=== PATIENT | male | born 1960 | race Caucasian/White ===

== ENCOUNTER 2025-05-01 00:51 | Day surgery (SDC) | payer OTHER, SELFPAY ==
[2025-04-25 08:26] VITALS: BMI 21.6
[2025-05-01 08:17] VITALS: BP 109/75; PULSE 57; RESP 18; TEMP 36.1; O2SAT 95
--- NOTE | 2025-05-01 08:28 | P.PNAN_ITS ---
Anes - Initial Pre Proc Eval Procedure: Operation Date: 05/01/25 09:30 Proposed Procedures p Screening Colonoscopy - Darshan Santiago DO Date/Time: 05/01/25 08:28 Surgeon: Darshan Santiago DO Pre Op Diagnosis: Neoplasm screening Patient Data Age: 64 Gender: M Height: 1.78 m Weight: 65.9 kg Last Vital Signs Temp 36.1 C L 05/01/25 08:17 Pulse 57 L 05/01/25 08:17 Resp 18 05/01/25 08:17 BP 109/75 05/01/25 08:17 Pulse Ox 95 05/01/25 08:17 O2 Del Method Room Air 05/01/25 08:17 Allergies Allergy/AdvReac Type Severity Reaction Status Date / Time No Known Allergies Allergy Verified 05/01/25 08:10 Home Medications ?Medication ?Instructions ?Recorded ?Confirmed ?Type ascorbic acid (vitamin C) 500 mg 500 mg PO DAILY 04/2504/25/25 History tablet (C-500) ergocalciferol (vitamin D2) 1,250 1,250 mcg PO DAILY 0 04/25/25 04/25/25 History mcg (50,000 unit) capsule (Vitamin D2) Patient hx anesthesia problems: none Family hx anesthesia problems: none Results Review: All pre-operative results and documents have been reviewed as part of the pre- operative evaluation. [facility] Past Medical History Medical History ) Hip pain, right Injury of metacarpal bone Umbilical hernia with obstruction, without gangrene Surgical History Surgical History ) H/O hernia repair Family History Family History ) Father Diabetes mellitus Grandparent Lung cancer Other Cerebrovascular accident Family history of malignant neoplasm Social History Social History ) Social History: 02/06/25 Very confident with medical forms Smoking status: Never smoker Alcohol intake: never Substance use: never Substance use type: does not use Do You Feel Safe in your Home?: Yes Lack of Transportation: No Lack of Food: Never True Current Housing: I Have Housing Concerned About Future Housing: No Difficulty Paying Gas/Electric Bills: No Difficulty Paying for Meds: No Currently Unemployed: No Education: Master's Degree or Higher Difficulty w/ Childcare or Family Care: No Living arrangements: with family Occupation/Education: occupation 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 Informed Consent: The patient's anesthetic plan and its attendant risks and benefits were discuss ed with the patient/family/POA. Questions were solicited and answers provided to the satisfaction of the patient/family/POA.
[2025-05-01] MEDS: LACTATED RINGERS 1,000 ML 150 ML IV CONT (08:30)
--- NOTE | 2025-05-01 09:19 | PM.IMHP ---
H&P: HPI History of Present Illness Date/Time: 05/01/25 09:19 Chief Complaint: screening for colorectal cancer Narrative: this is a 64-year-old man who presents for his 1st colonoscopy. He denies any hematochezia or melena. He denies any family history of colon cancer. Review of Systems Review of Systems: All systems reviewed & are unremarkable except as noted in HPI and below Constitutional: Constitutional: Denies chills, Denies fever(s), Denies headache(s) and Denies weight loss Eyes: Eyes: Denies change in vision ENT: Denies dizziness, Denies headache(s), Denies neck mass and Denies throat swelling Cardiovascular: Cardiovascular: Denies chest pain, Denies lightheadedness and Denies dyspnea Respiratory: Respiratory: Denies cough, Denies dyspnea and Denies wheezing Gastrointestinal: Gastrointestinal: Denies abdominal pain, Denies change in bowel habits, Denies nausea and Denies vomiting Genitourinary: Genitourinary: Denies hematuria and Denies dysuria Musculoskeletal: Musculoskeletal: Reports as per HPI Integumentary/Breasts: Skin/Breast: Reports as per HPI Neurologic: Denies dizziness and Denies headache(s) Allergic/Immunologic: Allergic/Immunologic: Denies throat swelling and Denies wheezing PMFSH Past Medical History Medical History ) Hip pain, right Injury of metacarpal bone Umbilical hernia with obstruction, without gangrene Surgical History Surgical History ) H/O hernia repair Family History Family History ) Father Diabetes mellitus Grandparent Lung cancer Other Cerebrovascular accident Family history of malignant neoplasm Social History Social History ) Social History: 02/06/25 Very confident with medical forms Smoking status: Never smoker Alcohol intake: never Substance use: never Substance use type: does not use Do You Feel Safe in your Home?: Yes Lack of Transportation: No Lack of Food: Never True Current Housing: I Have Housing Concerned About Future Housing: No Difficulty Paying Gas/Electric Bills: No Difficulty Paying for Meds: No Currently Unemployed: No Education: Master's Degree or Higher Difficulty w/ Childcare or Family Care: No Living arrangements: with family Occupation/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 Medications and Allergies Home Medications ?Medication ?Instructions ?Recorded ?Confirmed ?Type ascorbic acid (vitamin C) 500 mg 500 mg PO DAILY 04/25/25 04/25/25 History tablet (C-500) ergocalciferol (vitamin D2) 1,250 1,250 mcg PO DAILY 04/25/25 04/25/25 History mcg (50,000 unit) capsule (Vitamin D2) Allergies Allergy/AdvReac Type Severity Reaction Status Date / Time No Known Allergies Allergy Verified 05/01/25 08:10 Vital Signs Vital Signs - 24 hr 05/01/25 08:17 Temperature 97 F L Pulse Rate 57 L Respiratory Rate 18 Blood Pressure 109/75 Pulse Oximetry 95 Oxygen Delivery Room Air Exam Const: General: no acute distress and alert Orientation/consciousness: patient oriented x3 HENMT: Head: normocephalic and atraumatic Ears: hearing grossly normal bilaterally Face/Nose/Sinus: Normal nares present Mouth: Yes Normal oral and palatal mucosa present Eyes: Periorbital: periorbital findings normal Sclera: sclerae normal EOM: EOMs intact bilaterally Neck: Neck: normal visual inspection, no lymphadenopathy and trachea midline Chest: Chest palpation & inspection: normal inspection of the chest Resp: Effort & Inspection: normal respiratory effort Auscultation: clear to auscultation bilaterally Cardio: Jugular venous distension: no JVD Rate: regular rate Rhythm: regular rhythm Heart sounds: S1 normal heart sound present and S2 normal heart sound present Peripheral pulses: Peripheral pulses 2+ throughout GI: Inspection: normal to inspection GI Palp: Yes Soft to palpation, No Tenderness to palpation present (GI), No Guarding due to palpation present (GI) and No Rebound tenderness present Percussion: Yes normal to percussion Auscultation: normal bowel sounds : General: Yes no CVA tenderness Back/Spine/Pelvis: Back: no CVA tenderness Neuro: General: patient oriented x3, no focal motor deficits and CN's II-XI intact bilaterally Cognition (Neuro): normal cognition Speech: normal speech Motor exam (neuro): 5/5 motor strength present throughout Extrem: General: capillary refill normal and no clubbing, cyanosis or edema Assessment and Plan Assessment and plan (1) Screening for colorectal cancer: Code(s): Z12.11 - Encounter for screening for malignant neoplasm of colon; Z12.12 - Encounter for screening for malignant neoplasm of rectum Status: Acute Assessment and Plan: I have recommended colonoscopy. I have discussed the procedure, risks, benefits, and alternatives. Questions were answered. Patient is agreeable to proceed.
--- NOTE | 2025-05-01 09:59 | S_PTH ---
PATIENT: Francisco Orona LOC: [facility] U#:[id number] AGE/SX: 64/M ROOM: RE05/01/[address]: Darshan Santiago DO : 1960 BED: DIS: 05/01/2025 SPEC #: [id number] RECD: 05/01/25 10:10 STATUS: LALO REConstance #: [id number] CUBA: 05/01/25 09:[address]: Darshan Santiago DEPT: [facility] Surgical RECD BY: Ruben Jimenez ENTERED: 05/01/25 10:11 SP TYPE: Surgical OTHR DR: Sarai Elizalde APRN Tissues: A - Colon Polypectomy Procedures: Hematoxylin and Eosin Stain Gross and Microscopic Level 4
[2025-05-01 10:02] VITALS: BP 95/65; PULSE 68; RESP 14; O2SAT 99
[2025-05-01 10:12] VITALS: BP 103/75; PULSE 64; RESP 15; O2SAT 100
[2025-05-01 10:22] VITALS: BP 116/72; PULSE 51; RESP 12; O2SAT 100
== END 2025-05-01 10:42 | disposition home or self-care (01) ==
PROVIDERS: PCP Nurse Practitioner Family; Visit Provider Surgery
PROC: 0DJD8ZZ Inspection of Lower Intestinal Tract, Via Natural or Artificial Opening Endoscopic (ICD-10-PCS; CPT 45378; principal; 2025-05-01 09:30)
DX: Z12.11 Encounter for screening for malignant neoplasm of colon (principal); D12.8 Benign neoplasm of rectum
CPT/HCPCS: 45385; 88305; J2003; J2704; J7120